=== PATIENT | female | born 1965 | race Caucasian/White ===

== ENCOUNTER 2024-01-16 22:33 | Emergency (ER) | payer OTHER, BC ==
[2024-01-16] MEDS ORDERED: ONDANSETRON 4 MG/2 ML VIAL ONE (23:06)
[2024-01-16] MEDS ORDERED: NA CHLORIDE 0.9% 1,000 ML ONE (23:07)
[2024-01-16] MEDS ORDERED: MORPHINE 2 MG/ML SYR ONE (23:07)
[2024-01-16] MEDS ORDERED: TAMSULOSIN 0.4 MG SR CAP ONE (23:07)
[2024-01-16] MEDS ORDERED: MORPHINE 4 MG/ML SYR ONE (23:07)
[2024-01-16] MEDS ORDERED: KETOROLAC 30 MG/ML INJ ONE (23:08)
[2024-01-16 23:40] LABS: Absolute Monocytes 0.5 K/uL (0.1-1.3); Absolute Neutrophil 3.1 K/uL (1.8-8.0); Basophils % 0.3 % (0-1.3); Eosinophils % 0.8 % (0-4.4); Hematocrit 37.1 % (36.0-45.0); Hemoglobin 12.7 g/dL (12.0-15.0); Lymphocytes % 35.4 % (15.3-44.8); MCHC 34.1 g/dL (32.0-36.0); MPV 8.7 fL (7.6-11.3); Monocytes % 8.7 % (3.3-12.3); Neutrophils % 54.8 % (41.7-73.7); Nucleated Red Blood Cells % 0.2 % (0-0); Platelets 239 thou/uL (152-406); RBC Red Blood Cell Count 4.08 M/uL (3.86-4.86); Red Cell Distribution Width 13.2 % (12.1-15.2)
[2024-01-16 23:53] LABS: Albumin 3.7 g/dL (3.4-5.0); Albumin/Globulin Ratio 1.4 (1.1-1.8); Anion Gap 5.9 mEq/L (5.0-15.0); Bilirubin Total 2.1 mg/dL (0.2-1.0); Globulin 2.7 g/dL (2.3-3.5); Potassium 3.9 mEq/L (3.5-5.1); Protein, Total 6.4 g/dL (6.4-8.2)
[2024-01-17] MEDS ORDERED: MORPHINE 4 MG/ML SYR ONE (00:35)
[2024-01-17] MEDS ORDERED: PROMETHAZINE 25 MG TABLET ONE (00:53)
[2024-01-17] MEDS ORDERED: NA CHLORIDE 0.9% 1,000 ML ONE (00:53)
[2024-01-17] MEDS ORDERED: TRAMADOL HCL 50 MG TAB ONE (01:25)
[2024-01-17] MEDS ORDERED: METOCLOPRAMIDE 10 MG/2mL INJ ONE (02:19)
[2024-01-17 02:59] LABS: Calcium Oxalate Crystals- Ur Few /HPF (None Seen); Specific Gravity 1.015 (1.005-1.030); Sqamous Epithelial <5 /HPF (None Seen); Urine Bacteria None Seen /HPF (<20); Urine Bilirubin NEGATIVE (Negative); Urine Blood Trace (Negative); Urine Clarity Turbid (Clear); Urine Color Light-Yellow (Yellow); Urine Culture Reflex Order NOT NEEDED; Urine Glucose TRACE (Negative); Urine Ketones 1+ (Negative); Urine Microscopic Reflex YN ORDER UMIC; Urine Mucus Slight /HPF (None Seen); Urine Nitrite NEGATIVE (Negative); Urine Protein NEGATIVE (Negative); Urine Urobilinogen 1+ (Normal)
--- NOTE | 2024-01-17 03:08 | ER ---
Nurse's Notes [facility] Name: Dori Rucker Age: 58 yrs Sex: Female : 1965 Arrival Date: 01/16/2024 Time: 22:33 Bed 6 Private MD: Diagnosis: Calculus of kidney;Right ureteral calculus Presentation: 01/15 22:51 Chief complaint: Patient states: Right flank pain that radiates to RLQ onset today at cm10 2030. Pt reports that she has a history of kidney stones and feels like she is passing a stone. Pt also reports nausea and vomiting. Coronavirus screen: Client denies travel out of the [place] in the last 14 days. At this time, the client does not indicate any symptoms associated with coronavirus-19. Ebola Screen: Patient denies travel to an Ebola-affected area in the 21 days before illness onset. No symptoms or risks identified at this time. Initial Sepsis Screen: Does the patient meet any 2 criteria? No. Patient's initial sepsis screen is negative. Does the patient have a suspected source of infection? No. Patient's initial sepsis screen is negative. Risk Assessment: Do you want to hurt yourself or someone else? Patient reports no desire to harm self or others. Onset of symptoms was January 16, 2024. 22:51 Method Of Arrival: Wheelchair cm10 22:51 Acuity: HENRY 3 cm10 Triage Assessment: 22:53 General: Appears in no apparent distress. uncomfortable, Behavior is calm, cooperative. cm10 Pain: Complains of pain in Right flank Pain radiates to right lower quadrant Pain currently is 10 out of 10 on a pain scale. Pain began 3 hours ago. Is continuous. Neuro: No deficits noted. Level of Consciousness is awake, alert, obeys commands, Oriented to person, place, time, situation. Respiratory: No deficits noted. Airway is patent Respiratory effort is even, unlabored, Respiratory pattern is regular, symmetrical. Historical: - Allergies: 22:52 Dilaudid; cm10 22:52 Sulfa (Sulfonamide Antibiotics); cm10 - PMHx: 22:52 Degenerative disc disease; ulcerative colitis; cm10 - PSHx: 22:52 Cervical (plate and pins); Gastric bypass 2020; hysterectomy; cm10 - Immunization history:: Adult Immunizations up to date. - Infectious Disease History:: Denies. - Social history:: Smoking status: unknown. - Family history:: not pertinent. Screenin/29 01:45 [facility] ED Fall Risk Assessment (Adult) History of falling in the last 3 months, jb4 including since admission No falls in past 3 months (0 pts) Confusion or Disorientation No (0 pts). Abuse screen: Denies threats or abuse. Nutritional screening: No deficits noted. Tuberculosis screening: No symptoms or risk factors identified. Assessment: 01/15 23:00 General: Appears in no apparent distress. uncomfortable, Behavior is calm, cooperative, jb4 appropriate for age. Pain: Complains of pain in Right flank. Pain does not radiate. Pain currently is 10 out of 10 on a pain scale. Neuro: Level of Consciousness is awake, alert, obeys commands, Oriented to person, place, time, situation. Cardiovascular: Patient's skin is warm and dry. Respiratory: Airway is patent Respiratory effort is even, unlabored, Respiratory pattern is regular, symmetrical. Derm: Skin is intact, Skin is pink, warm \T\ dry. Musculoskeletal: Circulation, motion, and sensation intact. Range of motion: intact in all extremities. 01/16 00:45 Reassessment: Patient appears in no apparent distress at this time. Patient and/or jb4 family updated on plan of care and expected duration. Pain level reassessed. Patient is alert, oriented x 3, equal unlabored respirations, skin warm/dry/pink. 02:00 Reassessment: Patient appears in no apparent distress at this time. Patient and/or jb4 family updated on plan of care and expected duration. Pain level reassessed. Patient is alert, oriented x 3, equal unlabored respirations, skin warm/dry/pink. 03:31 Reassessment: Patient appears in no apparent distress at this time. Patient and/or jb4 family updated on plan of care and expected duration. Pain level reassessed. Patient is alert, oriented x 3, equal unlabored respirations, skin warm/dry/pink. Vital Signs: 01/15 22:51 BP 153 / 90; Pulse 66; Resp 16; Temp 96.5(TE); Pulse Ox 100% on R/A; Weight 73.94 kg; cm10 Height 5 ft. 6 in. ; Pain 10/10; 01/16 00:45 BP 126 / 71; Pulse 59; Resp 16; Pulse Ox 98% on R/A; Pain 6/10; jb4 00:57 BP 126 / 68; Pulse 54; Resp 16; Pulse Ox 100% ; Pain 4/10; jb4 01:45 BP 127 / 80; Pulse 67; Resp 16; Pulse Ox 97% on R/A; jb4 01/15 22:51 Body Mass Index 26.31 (73.94 kg, 167.64 cm) cm10 01/15 22:51 Pain Scale: Adult cm10 01/16 00:45 Pain Scale: Adult jb4 00:57 Pain Scale: Adult jb4 [place] Coma Score: 21:36 Eye Response: spontaneous(4). Motor Response: obeys commands(6). Verbal Response: sp4 oriented(5). Total: 15. ED Course: 01/15 22:35 Patient arrived in ED. ra3 22:45 Choco Wisdom MD is Attending Physician. sp4 22:52 Triage completed. cm10 22:54 Arm band placed on Patient placed in an exam room, on a stretcher. cm10 22:55 Esau Yeboah, ALONDRA is Primary Nurse. jb4 23:03 CBC with Diff Sent. jb4 23:03 CMP Sent. jb4 23:03 Lipase Sent. jb4 23:30 CT Abd/Pelvis - Without Contrast In Process Unspecified. EDMS 01/16 01:45 Patient has correct armband on for positive identification. Bed in low position. Call jb4 light in reach. Side rails up X 1. Provided Education on: discharge instructions.. 01:45 No provider procedures requiring assistance completed. IV discontinued, intact, jb4 bleeding controlled, No redness/swelling at site. Pressure dressing applied. 03:04 Kj Serrato MD is Referral Physician. sp4 Administered Medications: 01/15 23:16 Drug: morphine IVP or IV 6 mg IVP once over 4 mins Route: IVP; Infused Over: 4 mins; jb4 Site: right antecubital; 01/16 00:00 Follow up: Response: No adverse reaction; Marked relief of symptoms; RASS: Alert and jb4 Calm (0) 01/15 23:16 Drug: Ketorolac IVP 30 mg IVP once Route: IVP; Site: right antecubital; jb4 01/16 00:57 Follow up: Response: No adverse reaction; Marked relief of symptoms 4 01/15 23:16 Drug: Ondansetron IVP 4 mg IVP once; over 2 minutes Route: IVP; Site: right antecubital;4 01/16 00:57 Follow up: Response: No adverse reaction; Marked relief of symptoms 4 01/15 23:17 Drug: NS 0.9% IV 1000 ml IV at 1 bolus Per protocol; 1000 mL bolus Route: IV; Rate: 1 jb4 bolus; Site: right antecubital; 01/16 00:09 Drug: Flomax PO 0.4 mg PO once Route: PO; jb4 00:57 Follow up: Response: No adverse reaction jb4 00:42 Drug: morphine IVP or IV 4 mg IVP once over 4 mins Route: IVP; Infused Over: 4 mins; jb4 Site: right antecubital; 00:57 Follow up: BP 126 / 68; Pulse 54 bpm; Resp 16 bpm; Pulse Ox 100% ; Pain 4/10 Adult; jb4 Response: No adverse reaction; Marked relief of symptoms; RASS: Alert and Calm (0) 00:56 Drug: NS 0.9% IV 1000 ml IV at 1 bolus Per protocol; 1000 mL bolus Route: IV; Rate: 1 jb4 bolus; Site: right antecubital; 00:56 Drug: Promethazine PO 25 mg PO once Route: PO; jb4 00:57 Not Given (Pt does not know if she is allergic, denies needing more pain medication at 4 this time.): norco10 mg-325 mg 1 tabs PO once 01:27 Drug: traMADol PO 100 mg PO once Route: PO; jb4 02:10 Drug: metoCLOPramide IVP 10 mg IVP once; over 1 to 2 minutes Route: IVP; Site: right 4 antecubital; Medication: 01:45 VIS not applicable for this client. jb4 Outcome: 03:07 Discharge ordered by . sp4 03:33 Discharged to home ambulatory, jb4 03:33 Condition: stable 03:33 Discharge instructions given to patient, Instructed on discharge instructions, follow up and referral plans. medication usage, Demonstrated understanding of instructions, follow-up care, medications, Prescriptions given X 4, 03:33 Patient left the ED. jb4 Signatures: [facility]patcher [facility] E[facility]au Bishop, RN RN jb4 Choco Wisdom MD MD sp4 Bruna Garcia RN RN cm10 Yesenia Shafer ra3
--- NOTE | 2024-01-17 03:08 | EDPHYS ---
Physician Documentation [facility] Name: Dori Rucker Age: 58 yrs Sex: Female : 1965 Arrival Date: 01/16/2024 Time: 22:33 Bed 6 Private MD: ED Physician Choco Wisdom HPI: 01/15 22:45 This 58 yrs old Female presents to ER via Unassigned with complaints of sp4 Urinary Problem, Low Back Pain - to pelvic pain. 01/16 21:36 Patient presents with acute onset right flank pain. sp4 Historical: - Allergies: 01/15 22:52 Dilaudid; cm10 22:52 Sulfa (Sulfonamide Antibiotics); cm10 - PMHx: 22:52 Degenerative disc disease; ulcerative colitis; cm10 - PSHx: 22:52 Cervical (plate and pins); Gastric bypass 2020; hysterectomy; cm10 - Immunization history:: Adult Immunizations up to date. - Infectious Disease History:: Denies. - Social history:: Smoking status: unknown. - Family history:: not pertinent. ROS: 01/16 21:36 Constitutional: Negative for fever, chills, and weight loss, positive right flank pain sp4 All other systems are negative, Exam: 21:36 Constitutional: This is a well developed, well nourished patient who is awake, alert, sp4 and in no acute distress. Head/Face: Normocephalic, atraumatic. Eyes: Pupils equal round and reactive to light, extra-ocular motions intact. Lids and lashes normal. Conjunctiva and sclera are not injected. Cornea within normal limits. Periorbital areas with no swelling, redness, or edema. ENT: Nares patent. No nasal discharge, no septal abnormalities noted. Tympanic membranes are normal and external auditory canals are clear. Oropharynx with no redness, swelling, or masses, exudates, or evidence of obstruction, uvula midline. Mucous membranes moist. Neck: Trachea midline, no thyromegaly or masses palpated, and no cervical lymphadenopathy. Supple, full range of motion without nuchal rigidity, or vertebral point tenderness. Chest/axilla: Normal chest wall appearance and motion. Nontender with no deformity. No lesions are appreciated. Cardiovascular: Regular rate and rhythm with a normal S1 and S2. No gallops, murmurs, or rubs. Normal PMI, no JVD. No pulse deficits. Respiratory: Lungs have equal breath sounds bilaterally, clear to auscultation and percussion. No rales, rhonchi or wheezes noted. No increased work of breathing, no retractions or nasal flaring. Abdomen/GI: Soft, with normal bowel sounds. No distension or tympany. No guarding or rebound. Positive right flank tenderness Back: No spinal tenderness. No costovertebral tenderness. Skin: Warm, dry with normal turgor. Normal color with no rashes, no lesions, and no evidence of cellulitis. MS/ Extremity: Pulses equal, no cyanosis. Neurovascular intact. Full, normal range of motion. Neuro: Awake and alert, GCS 15, oriented to person, place, time, and situation. Cranial nerves II-XII grossly intact. Motor strength 5/5 in all extremities. Sensory grossly intact. Psych: Awake, alert, with orientation to person, place and time. Behavior, mood, and affect are within normal limits Vital Signs: 01/15 22:51 BP 153 / 90; Pulse 66; Resp 16; Temp 96.5(TE); Pulse Ox 100% on R/A; Weight 73.94 kg; cm10 Height 5 ft. 6 in. ; Pain 10/10; 01/16 00:45 BP 126 / 71; Pulse 59; Resp 16; Pulse Ox 98% on R/A; Pain 6/10; jb4 00:57 BP 126 / 68; Pulse 54; Resp 16; Pulse Ox 100% ; Pain 4/10; jb4 01:45 BP 127 / 80; Pulse 67; Resp 16; Pulse Ox 97% on R/A; jb4 01/15 22:51 Body Mass Index 26.31 (73.94 kg, 167.64 cm) cm10 01/15 22:51 Pain Scale: Adult cm10 01/16 00:45 Pain Scale: Adult jb4 00:57 Pain Scale: Adult jb4 [place] Coma Score: 21:36 Eye Response: spontaneous(4). Motor Response: obeys commands(6). Verbal Response: sp4 oriented(5). Total: 15. MDM: 01/15 22:46 Patient medically screened. sp4 01/16 21:36 Data reviewed: vital signs, nurses notes, lab test result(s), radiologic studies, CT sp4 scan. 21:37 Differential diagnosis: arthritis, strain, fracture, sciatica, Herniated disc UTI. sp4 Consideration of Admission/Observation Escalation of care including admission/observation considered. 21:37 ED course: CT has revealed 3 mm right ureteral calculus distal right ureter. Patient sp4 stable for discharge home with Flomax and as needed pain medication. 01/15 22:46 Order name: CBC with Diff; Complete Time: 00:42 sp4 01/15 22:46 Order name: CMP; Complete Time: 00:42 sp4 01/15 22:46 Order name: Lipase; Complete Time: 00:42 sp4 01/15 22:46 Order name: Urinalysis w/ reflexes; Complete Time: 03:02 sp4 01/15 22:52 Order name: CT Abd/Pelvis - Without Contrast; Complete Time: 21:38 sp4 01/15 22:46 Order name: IV Saline Lock; Complete Time: 23:03 sp4 01/15 22:46 Order name: Labs collected and sent; Complete Time: 23:03 sp4 Administered Medications: 01/15 23:16 Drug: morphine IVP or IV 6 mg IVP once over 4 mins Route: IVP; Infused Over: 4 mins; jb4 Site: right antecubital; 01/16 00:00 Follow up: Response: No adverse reaction; Marked relief of symptoms; RASS: Alert and jb4 Calm (0) 01/15 23:16 Drug: Ketorolac IVP 30 mg IVP once Route: IVP; Site: right antecubital; jb4 01/16 00:57 Follow up: Response: No adverse reaction; Marked relief of symptoms 4 01/15 23:16 Drug: Ondansetron IVP 4 mg IVP once; over 2 minutes Route: IVP; Site: right antecubital;jb4 01/16 00:57 Follow up: Response: No adverse reaction; Marked relief of symptoms 4 01/15 23:17 Drug: NS 0.9% IV 1000 ml IV at 1 bolus Per protocol; 1000 mL bolus Route: IV; Rate: 1 jb4 bolus; Site: right antecubital; 01/16 00:09 Drug: Flomax PO 0.4 mg PO once Route: PO; jb4 00:57 Follow up: Response: No adverse reaction 4 00:42 Drug: morphine IVP or IV 4 mg IVP once over 4 mins Route: IVP; Infused Over: 4 mins; jb4 Site: right antecubital; 00:57 Follow up: BP 126 / 68; Pulse 54 bpm; Resp 16 bpm; Pulse Ox 100% ; Pain 4/10 Adult; jb4 Response: No adverse reaction; Marked relief of symptoms; RASS: Alert and Calm (0) 00:56 Drug: NS 0.9% IV 1000 ml IV at 1 bolus Per protocol; 1000 mL bolus Route: IV; Rate: 1 jb4 bolus; Site: right antecubital; 00:56 Drug: Promethazine PO 25 mg PO once Route: PO; jb4 00:57 Not Given (Pt does not know if she is allergic, denies needing more pain medication at jb4 this time.): norco10 mg-325 mg 1 tabs PO once 01:27 Drug: traMADol PO 100 mg PO once Route: PO; jb4 02:10 Drug: metoCLOPramide IVP 10 mg IVP once; over 1 to 2 minutes Route: IVP; Site: right jb4 antecubital; Disposition Summary: 01/17/24 03:07 Discharge Ordered Notes: Location: Home sp4 Problem: new sp4 Symptoms: have improved sp4 Condition: Stable sp4 Diagnosis - Calculus of kidney sp4 - Right ureteral calculus sp4 Followup: sp4 - With: Kj Serrato MD - When: 7 - 10 days - Reason: Recheck today's complaints Discharge Instructions: - Discharge Summary Sheet sp4 - Kidney Stones sp4 Forms: - Patient Portal Instructions sp4 Prescriptions: - Flomax 0.4 mg Oral capsule - take 1 capsule ORAL route every morning; 30 capsule; Refills: 0, Product sp4 Selection Permitted - ketorolac 10 mg Oral tablet - take 1 tablet ORAL route every 8 hours for 3 days PRN pain; 30 tablet; Refills: sp4 0, Product Selection Permitted - tramadol 100 mg Oral tablet - take 1 tablet ORAL route every 6 hours PRN pain; 25 tablet; Refills: 0, Product sp4 Selection Permitted - promethazine 25 mg Oral Tablet - take 1 tablet ORAL route every 6 hours As needed; 20 tablet; Refills: 0, sp4 Product Selection Permitted Signatures: Dispatcher [employer] Esau Solares RN RN jb4 Choco Wisdom MD MD sp4 Bruna Garcia RN RN cm10 Corrections: (The following items were deleted from the chart) 01/15 22:46 22:46 CBC+H.LAB.BRZ ordered. EDMS EDMS 22:46 22:46 COMPREHENSIVE METABOLIC PANEL+C.LAB.BRZ ordered. EDMS EDMS 22:46 22:46 LIPASE+C.LAB.BRZ ordered. EDMS EDMS 22:46 22:46 Urinalysis+U.LAB.BRZ ordered. EDMS EDMS 22:52 22:52 Abdomen Pelvis Wo Con+CT.RAD.BRZ ordered. EDMS EDMS
[2024-01-17 04:02] VITALS: BP 127/80; TEMP 96.5; O2SAT 97
--- NOTE | 2024-01-17 11:43 | RAD REPORT ---
EXAM DESCRIPTION: CT Abdomen and Pelvis Without Intravenous Contrast CLINICAL HISTORY: The patient is 58 years old and is Female; right flank pain TECHNIQUE: Axial computed tomography images of the abdomen and pelvis without intravenous contrast. Sagittal and coronal reformatted images were created and reviewed. This CT exam was performed usi ng one or more of the following dose reduction techniques: automated exposure control, adjustment o f the mA and/or kV according to patient size, and/or use of iterative reconstruction technique. COMPARISON: CT November 21, 2023 FINDINGS: LUNG BASES: Unremarkable. No mass. No consolidation. ABDOMEN: LIVER: Homogeneous without focal mass. GALLBLADDER AND BILE DUCTS: Surgical clips are present in the right upper quadrant, consistent wi th previous cholecystectomy. PANCREAS: Unremarkable. No ductal dilation. SPLEEN: Unremarkable. ADRENALS: Unremarkable. No mass. KIDNEYS AND URETERS: Edematous right kidney with mild right hydroureteronephrosis secondary to a 0.3 cm distal right ureteral calculus. Right perinephric and periureteral stranding is present. Pun ctate right intrarenal calcification is noted. There is no hydronephrosis or hydroureter of the left kidney. STOMACH AND BOWEL: Postsurgical change consistent with a gastric bypass is present. The small bow el is normal in caliber. A moderate amount of stool is present throughout the colon. There is no muco sugar thickening or evidence of obstruction. PELVIS: APPENDIX: No findings to suggest acute appendicitis. BLADDER: The bladder is incompletely distended. No stones. REPRODUCTIVE: The patient is status post hysterectomy. ABDOMEN and PELVIS: INTRAPERITONEAL SPACE: Unremarkable. No free air. No significant fluid collection. BONES/JOINTS: No acute fracture. SOFT TISSUES: The soft tissues are normal. VASCULATURE: Minimal atherosclerosis of the vasculature is present. Calcified phleboliths are pre sent within the pelvis. No abdominal aortic aneurysm. LYMPH NODES: Unremarkable. No enlarged lymph nodes. IMPRESSION: Edematous right kidney with mild right hydroureteronephrosis secondary to a 0.3 cm dista l right ureteral calculus. Electronically signed by: Lisa Vu MD 01/16/2024 11:49 PM CDT Due to temporary technical issues with the PACS/Fluency reporting system, reports are being signed by the in house radiologist without review as a courtesy to ensure prompt reporting. The interpreting r adiologist is fully responsible for the content of the report.
== END 2024-01-17 03:33 | disposition home or self-care (01) ==
LOC: ER 22:33
DX: N20.0 Calculus of kidney (principal); N20.1 Calculus of ureter; Z88.2 Allergy status to sulfonamides; Z88.5 Allergy status to narcotic agent
CPT/HCPCS: 85025; 81001; 36415; 83690; 80053; 74176; Q0169; J2765; J2270; J2405; J7030 ×2; 96374; 96375; 99284

== ENCOUNTER 2024-07-25 08:14 | Emergency (ER) | payer OTHER, BC ==
[2024-07-25] MEDS ORDERED: ASPIRIN EC 325 MG TABLET PO ONE (08:45)
[2024-07-25] MEDS ORDERED: NITROGLYCERIN 0.4 MG/TAB SL ONE (08:46)
[2024-07-25 09:04] LABS: Absolute Lymphocytes (CBC) 0.6 K/uL (0.7-4.9); Absolute Monocytes 0.4 K/uL (0.1-1.3); Absolute Neutrophil 3.3 K/uL (1.8-8.0); Basophils % 0.2 % (0-1.3); Eosinophils % 0.3 % (0-4.4); Hematocrit 41.3 % (36.0-45.0); Hemoglobin 13.8 g/dL (12.0-15.0); Lymphocytes % 13.5 % (15.3-44.8); MCH 30.6 pg (27.0-35.0); MCHC 33.5 g/dL (32.0-36.0); MCV 91.5 fL (80-100); MPV 8.2 fL (7.6-11.3); Nucleated Red Blood Cells % 0.1 % (0-0); Platelets 202 thou/uL (152-406); RBC Red Blood Cell Count 4.52 M/uL (3.86-4.86); Red Cell Distribution Width 13.8 % (12.1-15.2)
--- NOTE | 2024-07-25 09:19 | RAD REPORT ---
Procedure: Chest Single View HISTORY: Chest pain COMPARISON: 2018 FINDINGS: The lungs appear clear of acute infiltrate. No significant pleural effusion noted. The heart is normal size. IMPRESSION: No acute abnormality is displayed.
[2024-07-25 09:32] LABS: Albumin 3.7 g/dL (3.4-5.0); Albumin/Globulin Ratio 1.3 (1.1-1.8); Anion Gap 6.1 mEq/L (5.0-15.0); Bilirubin Direct 0.4 mg/dL (0-0.2); Bilirubin Indirect, Calculated 1.3 mg/dL (0.2-0.8); Bilirubin Total 1.7 mg/dL (0.2-1.0); Globulin 2.8 g/dL (2.3-3.5); Potassium 4.1 mEq/L (3.5-5.1); Protein, Total 6.5 g/dL (6.4-8.2)
--- NOTE | 2024-07-25 11:49 | RAD REPORT ---
EXAMINATION: CT ABDOMEN AND PELVIS WITH CONTRAST CLINICAL INDICATION: Abdominal pain TECHNIQUE: CT abdomen and pelvis was performed, after the administration of 100 cc Isovue-300.. Sagit janine and coronal reconstructions were obtained. One or more of the following dose reduction techniques were used: Automated exposure control, adjustment of the mA and kV according to patient si ze, and iterative reconstruction. Unless otherwise specified, incidental findings do not require dedicated imaging follow-up. [id number]. Oral contrast was not given which limits evaluation of bowel and appendix. COMPARISON: November 2023 FINDINGS: Mild fatty liver. Cholecystectomy. Post surgical changes involving the stomach. Wall of the distal stomach appears thic kened. Spleen is upper limits normal size. Pancreas and adrenals unremarkable. Small left renal cyst. No hydronephrosis. Hysterectomy. No adnexal mass. No evidence of diverticulitis. Thickening of the wall of the ascending colon. : IMPRESSION: Apparent thickening of the wall of the distal stomach and ascending colon. Both may be secondary to i ncomplete distention or inflammation.
--- NOTE | 2024-07-25 12:16 | EKG ---
Test Date: 2024-07-25 Test Time: 08:36:33 Kerrick Kleaner Operator: MOODY MEASUREMENT RESULTS: Intervals: Rate: 51 GA: 124 QRSD: 88 QT: 434 QTc: 400 Cropsey: P: 61 GA: 124 QRS: 51 T: 57 INTERPRETIVE STATEMENTS: Sinus bradycardia Otherwise normal ECG Compared to ECG 03/12/2015 10:19:21 Sinus rhythm no longer present Electronically Signed On 07-25-24 12:15:19 POLICE DISPATCHER by Kevin Queen
--- NOTE | 2024-07-25 13:33 | EDPHYS ---
Physician Documentation [facility] Name: Dori Rucker Age: 59 yrs Sex: Female : 1965 Arrival Date: 07/25/2024 Time: 08:14 Bed 20 Private MD: ED Physician Frank Siddiqi HPI: 07/25 09:58 This 59 yrs old Female presents to ER via Ambulatory with complaints of Chest Pain, rt Vomiting, Dizziness. 09:58 Patient presents to the ED with chest pain, nausea, dizziness starting last night at rt 10. Pain is on the left side, does not radiate. Patient reports history of vertigo, states that her dizziness resolved with meclizine. Denies other acute complaints at this time, symptoms are moderate in severity, no other aggravating or alleviating factors.. Historical: - Allergies: 08:42 Dilaudid; rs5 08:42 Sulfa (Sulfonamide Antibiotics); rs5 - PMHx: 08:42 Degenerative disc disease; ulcerative colitis; Hypertensive disorder; vertigo; rs5 - PSHx: 08:42 Cervical (plate and pins); Gastric bypass 2020; hysterectomy; rs5 - Immunization history:: Adult Immunizations up to date. - Infectious Disease History:: Denies. - Social history:: Smoking status: Patient denies any tobacco usage or history of. - Family history:: not pertinent. ROS: 09:58 Constitutional: Negative for fever, chills, and weight loss, Respiratory: Negative for rt shortness of breath, cough, wheezing, and pleuritic chest pain, MS/Extremity: Negative for injury and deformity, Skin: Negative for injury, rash, and discoloration, 09:58 Cardiovascular: Positive for Negative for edema, 09:58 Abdomen/GI: Positive for nausea, Negative for abdominal pain, Exam: 09:58 Constitutional: This is a well developed, well nourished patient who is awake, alert, rt and in no acute distress. Head/Face: Normocephalic, atraumatic. Chest/axilla: Normal chest wall appearance and motion. Nontender with no deformity. No lesions are appreciated. Cardiovascular: Regular rate and rhythm with a normal S1 and S2. No gallops, murmurs, or rubs. Normal PMI, no JVD. No pulse deficits. Respiratory: Lungs have equal breath sounds bilaterally, clear to auscultation and percussion. No rales, rhonchi or wheezes noted. No increased work of breathing, no retractions or nasal flaring. Abdomen/GI: Soft, non-tender, with normal bowel sounds. No distension or tympany. No guarding or rebound. No evidence of tenderness throughout. Skin: Warm, dry with normal turgor. Normal color with no rashes, no lesions, and no evidence of cellulitis. MS/ Extremity: Pulses equal, no cyanosis. Neurovascular intact. Full, normal range of motion. Neuro: Awake and alert, GCS 15, oriented to person, place, time, and situation. Cranial nerves II-XII grossly intact. Motor strength 5/5 in all extremities. Sensory grossly intact. Cerebellar exam normal. Normal gait. 09:58 ECG was reviewed by the Attending Physician. Vital Signs: 08:30 BP 154 / 80; Pulse 53; Resp 17; Temp 98(O); Pulse Ox 99% on R/A; rs5 11:10 BP 112 / 74; Pulse 51; Resp 17; Pulse Ox 99% on R/A; rs5 12:01 BP 122 / 81; Pulse 64; Resp 17; Pulse Ox 98% on R/A; rs5 13:01 BP 124 / 85; Pulse 57; Resp 16; Pulse Ox 99% on R/A; rs5 15:20 BP 117 / 77; Pulse 55; Resp 17; Pulse Ox 99% on R/A; rs5 MDM: 08:30 Medical Screening Exam initiated rt 17:03 Differential diagnosis: Acute NM, nonspecific chest pain, pancreatitis, hepatitis. rt HEART Score: History: Moderately Suspicious (1), ECG: Normal (0), Age: > 45 and < 65 years (1), Risk Factors: 1 or 2 risk factors (1), Troponin: < or = 1 x Normal Limit (0), Total Score = 3. The patient was given aspirin in the Emergency Department. Data reviewed: vital signs, nurses notes, lab test result(s), EKG, radiologic studies. Consideration of Admission/Observation Patient requires transfer for hepatology. Management of patient was discussed with the following: Manager Field Services: Discussed with accepting functional tester, hospitalist at [facility]. I considered the following discharge prescriptions or medication management in the emergency department Medications were administered in the Emergency Department. See MAR. Independent interpretation of the following test(s) in the Emergency Department CT Scan: My interpretation is No infiltrate seen bowel obstruction seen on interpretation of CT scan images. Care significantly affected by the following chronic conditions: Hypertension. Counseling: I had a detailed discussion with the patient and/or guardian regarding the historical points, exam findings, and any diagnostic results supporting the discharge/admit diagnosis, lab results, radiology results, the need to transfer to another facility. Response to treatment: the patient's symptoms have markedly improved after treatment. 07/25 09:01 Order name: Basic Metabolic Panel; Complete Time: 10:57 EDMS 07/25 09:01 Order name: Liver (Hepatic) Function; Complete Time: 10:57 EDMS 07/25 09:01 Order name: Troponin High Sensitivity; Complete Time: 10:57 EDMS 07/25 09:01 Order name: CBC with Automated Diff; Complete Time: 10:57 EDMS 07/25 11:20 Order name: Lipase; Complete Time: 12:32 rt 07/25 08:51 Order name: Chest Single View; Complete Time: 10:57 EDMS 07/25 11:20 Order name: CT Abd/Pelvis - IV Contrast Only; Complete Time: 11:51 rt 07/25 08:35 Order name: EKG; Complete Time: 10:52 rt 07/25 10:11 Order name: EKG Electrocardiogram EDMS 07/25 08:35 Order name: Cardiac monitoring; Complete Time: 09:01 rt 07/25 08:35 Order name: EKG - Nurse/Tech; Complete Time: 09:01 rt 07/25 08:35 Order name: IV Saline Lock; Complete Time: 09:01 rt 07/25 08:35 Order name: Labs collected and sent; Complete Time: 09:01 rt 07/25 08:35 Order name: O2 Per Protocol; Complete Time: 09:01 rt 07/25 08:35 Order name: O2 Sat Monitoring; Complete Time: 09:01 rt EC:58 Rate is 51 beats/min. Rhythm is regular, Sinus bradycardia with No ectopy. QRS Benjamin is rt Normal. NC interval is normal. QRS interval is normal. QT interval is normal. No Q waves. T waves are Normal. No ST changes noted. Interpreted by me. Administered Medications: 08:40 Drug: Aspirin PO 325 mg PO once Route: PO; rs5 09:35 Follow up: Response: No adverse reaction rs5 08:40 Drug: Nitroglycerin Sublingual 0.4 mg Sublingual once; every five minute if needed x3 rs5 Route: Sublingual; 08:45 Drug: Nitroglycerin Sublingual 0.4 mg Sublingual once; every five minute if needed x3 rs5 Route: Sublingual; 08:50 Drug: Nitroglycerin Sublingual 0.4 mg Sublingual once; every five minute if needed x3 rs5 Route: Sublingual; 09:00 Follow up: Response: No adverse reaction; Pain is decreased rs5 Disposition Summary: 07/25/24 13:32 Transfer Ordered Notes: Transfer Location: [facility] rt Reason: Higher level of care rt Condition: Stable rt Problem: new rt Symptoms: have improved rt Accepting Physician: (07/25/24 15:59) rs5 Diagnosis - Acute hepatitis rt - Chest pain rt Forms: - Medication Reconciliation Form rt - SBAR form rt Signatures: Dispatcher [employer] EDMS Frank Siddiqi MD MD rt Job Mann RN RN rs5 Corrections: (The following items were deleted from the chart) 10:57 10:52 Chest Single View+RAD.RAD.BRZ ordered. EDMS EDMS 11:43 10:52 BASIC METABOLIC PANEL+C.LAB.BRZ ordered. EDMS EDMS 11:43 10:52 CBC+H.LAB.BRZ ordered. EDMS EDMS 11:43 10:52 HEPATIC FUNCTION+C.LAB.BRZ ordered. EDMS EDMS 11:43 10:52 Troponin High Sensitivity+C.LAB.BRZ ordered. EDMS EDMS 15:59 13:32 rt rs5
--- NOTE | 2024-07-25 13:33 | ER ---
Nurse's Notes [facility] Name: Dori Rucker Age: 59 yrs Sex: Female : 1965 Arrival Date: 07/25/2024 Time: 08:14 Bed 20 Private MD: Diagnosis: Acute hepatitis;Chest pain Presentation: 07/25 08:30 Chief complaint: Patient states: Chest pain, dizziness, and nausea that started last rs5 night around 10 p.m. 08:30 Coronavirus screen: At this time, the client does not indicate any symptoms associated rs5 with coronavirus-19. Ebola Screen: No symptoms or risks identified at this time. Initial Sepsis Screen: Does the patient meet any 2 criteria? No. Patient's initial sepsis screen is negative. Does the patient have a suspected source of infection? No. Patient's initial sepsis screen is negative. Risk Assessment: Do you want to hurt yourself or someone else? Patient reports no desire to harm self or others. Onset of symptoms was July 25, 2024. 08:30 Method Of Arrival: Ambulatory rs5 08:30 Acuity: HENRY 2 rs5 Historical: - Allergies: 08:42 Dilaudid; rs5 08:42 Sulfa (Sulfonamide Antibiotics); rs5 - PMHx: 08:42 Degenerative disc disease; ulcerative colitis; Hypertensive disorder; vertigo; rs5 - PSHx: 08:42 Cervical (plate and pins); Gastric bypass 2020; hysterectomy; rs5 - Immunization history:: Adult Immunizations up to date. - Infectious Disease History:: Denies. - Social history:: Smoking status: Patient denies any tobacco usage or history of. - Family history:: not pertinent. Screenin:30 [facility] ED Fall Risk Assessment (Adult) History of falling in the last 3 months, rs5 including since admission No falls in past 3 months (0 pts) Confusion or Disorientation No (0 pts) Intoxicated or Sedated No (0 pts) Impaired Gait No (0 pts) Mobility Assist Device Used No (0 pt) Altered Elimination No (0 pt) Score/Fall Risk Level 0 - 2 = Low Risk Oriented to surroundings, Maintained a safe environment. Abuse screen: Denies threats or abuse. Nutritional screening: No deficits noted. Tuberculosis screening: No symptoms or risk factors identified. Assessment: 08:30 General: Appears in no apparent distress. uncomfortable, Behavior is calm, cooperative. rs5 Pain: Complains of pain in chest Pain does not radiate. Quality of pain is described as aching, Pain began 4 hours ago. Is continuous. Neuro: Level of Consciousness is awake, alert, obeys commands, Oriented to person, place, time, situation. Cardiovascular: Patient's skin is warm and dry. Respiratory: Airway is patent Respiratory effort is even, unlabored, Respiratory pattern is regular, symmetrical. GI: Abdomen is round non-distended, Abd is soft and non tender X 4 quads. : No signs and/or symptoms were reported regarding the genitourinary system. EENT: No signs and/or symptoms were reported regarding the EENT system. Derm: Skin is intact, Skin is pink, warm \T\ dry. Musculoskeletal: Range of motion: intact in all extremities. 09:01 Reassessment: Patient and/or family updated on plan of care and expected duration. Pain rs5 level reassessed. Patient is alert, oriented x 3, equal unlabored respirations, skin warm/dry/pink. Patient denies pain at this time. Patient states feeling better. Patient states symptoms have improved. to bedside for med adm, 3 tablets 0.4 sublingual nitro adm q 5 for chest pain relief per MD orders, . 09:41 Reassessment: Patient and/or family updated on plan of care and expected duration. Pain rs5 level reassessed. Patient is alert, oriented x 3, equal unlabored respirations, skin warm/dry/pink. 10:25 Reassessment: Patient and/or family updated on plan of care and expected duration. Pain rs5 level reassessed. Patient is alert, oriented x 3, equal unlabored respirations, skin warm/dry/pink. 11:09 Reassessment: Patient and/or family updated on plan of care and expected duration. Pain rs5 level reassessed. Patient is alert, oriented x 3, equal unlabored respirations, skin warm/dry/pink. 15:58 Reassessment: Patient and/or family updated on plan of care and expected duration. Pain rs5 level reassessed. Patient is alert, oriented x 3, equal unlabored respirations, skin warm/dry/pink. report given to EMS at bedside . Vital Signs: 08:30 BP 154 / 80; Pulse 53; Resp 17; Temp 98(O); Pulse Ox 99% on R/A; rs5 11:10 BP 112 / 74; Pulse 51; Resp 17; Pulse Ox 99% on R/A; rs5 12:01 BP 122 / 81; Pulse 64; Resp 17; Pulse Ox 98% on R/A; rs5 13:01 BP 124 / 85; Pulse 57; Resp 16; Pulse Ox 99% on R/A; rs5 15:20 BP 117 / 77; Pulse 55; Resp 17; Pulse Ox 99% on R/A; rs5 ED Course: 08:17 Patient arrived in ED. mg5 08:29 Frank Siddiqi MD is Attending Physician. rt 08:30 Patient has correct armband on for positive identification. Placed in gown. Bed in low rs5 position. Call light in reach. Side rails up X2. Client placed on continuous cardiac and pulse oximetry monitoring. NIBP monitoring applied. lab coordinator on. Pulse ox on. 08:30 No provider procedures requiring assistance completed. Patient maintains SpO2 rs5 saturation greater than 95% on room air. 08:37 Inserted saline lock: 20 gauge in right antecubital area, using aseptic technique. rs5 Blood collected. Flushed with 10 mL NS. 08:40 Job Mann, RN is Primary Nurse. rs5 08:42 Triage completed. rs5 09:15 Chest Single View In Process Unspecified. EDMS 11:36 CT Abd/Pelvis - IV Contrast Only In Process Unspecified. EDMS 13:50 initiated transfer to [facility]. bc6 15:50 Patient transferred, IV remains in place. rs5 Administered Medications: 08:40 Drug: Aspirin PO 325 mg PO once Route: PO; rs5 09:35 Follow up: Response: No adverse reaction rs5 08:40 Drug: Nitroglycerin Sublingual 0.4 mg Sublingual once; every five minute if needed x3 rs5 Route: Sublingual; 08:45 Drug: Nitroglycerin Sublingual 0.4 mg Sublingual once; every five minute if needed x3 rs5 Route: Sublingual; 08:50 Drug: Nitroglycerin Sublingual 0.4 mg Sublingual once; every five minute if needed x3 rs5 Route: Sublingual; 09:00 Follow up: Response: No adverse reaction; Pain is decreased rs5 Medication: 13:44 VIS not applicable for this client. rs5 Outcome: 13:32 ER care complete, transfer ordered by . rt 15:50 Transferred by ground EMS rs5 15:50 Condition: stable rs5 15:50 Instructed on the need for transfer, Demonstrated understanding of instructions, 15:59 Patient left the ED. rs5 Signatures: Dispatcher [employer] EDMS Frank Siddiqi MD MD rt Job Mann RN RN rs5 Shea Arrington 6 Sarah Arita mg5
[2024-07-25 16:04] VITALS: TEMP 98; O2SAT 99
[2024-07-25 16:05] VITALS: BP 112/74
== END 2024-07-25 15:59 | disposition short-term general hospital (02) ==
LOC: ER 08:14
DX: K85.90 Acute pancreatitis without necrosis or infection, unspecified (principal); R07.9 Chest pain, unspecified; I10 Essential (primary) hypertension
CPT/HCPCS: 93005; 85025; 80048; 36415; 80076; 84484; 83690; 74177; 71045; Q9967

== ENCOUNTER 2024-10-02 20:14 | Emergency (ER) | payer OTHER, BC ==
[2024-10-02] MEDS ORDERED: MORPHINE 4 MG/ML SYR ONE (20:45)
[2024-10-02] MEDS ORDERED: ONDANSETRON 4 MG/2 ML VIAL ONE (20:45)
[2024-10-02] MEDS ORDERED: FAMOTIDINE 20 MG/2 ML VIAL IV ONE (20:46)
[2024-10-02] MEDS ORDERED: NA CHLORIDE 0.9% 500 ML ONE (20:46)
[2024-10-02 21:19] LABS: Absolute Lymphocytes (CBC) 1.3 K/uL (0.7-4.9); Absolute Monocytes 0.3 K/uL (0.1-1.3); Absolute Neutrophil 4.6 K/uL (1.8-8.0); Basophils % 0.3 % (0-1.3); Eosinophils % 0.7 % (0-4.4); Hematocrit 39.6 % (36.0-45.0); Hemoglobin 13.1 g/dL (12.0-15.0); Lymphocytes % 21.3 % (15.3-44.8); MCH 30.9 pg (27.0-35.0); MCHC 33.1 g/dL (32.0-36.0); MCV 93.4 fL (80-100); MPV 8.9 fL (7.6-11.3); Monocytes % 5.2 % (3.3-12.3); Neutrophils % 72.5 % (41.7-73.7); Nucleated Red Blood Cells % 0.1 % (0-0); Platelets 232 thou/uL (152-406); RBC Red Blood Cell Count 4.24 M/uL (3.86-4.86)
[2024-10-02 21:21] LABS: Albumin 3.6 g/dL (3.4-5.0); Albumin/Globulin Ratio 1.1 (1.1-1.8); Anion Gap 7.2 mEq/L (5.0-15.0); Bilirubin Total 1.3 mg/dL (0.2-1.0); Globulin 3.2 g/dL (2.3-3.5); Potassium 4.2 mEq/L (3.5-5.1); Protein, Total 6.8 g/dL (6.4-8.2)
--- NOTE | 2024-10-02 21:44 | RAD REPORT ---
EXAMINATION: CT Abdomen Pelvis Wo Contrast CLINICAL INDICATION: Female, 59 years old. ABD PAIN TECHNIQUE: CT abdomen and pelvis was performed, without IV contrast, as per department protocol. Axia l, sagittal and coronal reconstructions were obtained. One or more of the following dose reduction techniques were used: Automated exposure control, adjustment of the mA and kV according to the patien t size, and iterative reconstruction. Unless otherwise specified, incidental findings do not require dedicated imaging follow-up. COMPARISON: 07/25/2024 FINDINGS: The lack of intravenous contrast limits the sensitivity of this exam for evaluation of solid visceral organs, vascular structures, and retroperitoneum. LOWER CHEST: The visualized lung bases are clear. LIVER: Normal in size and contour. No focal lesion. BILIARY SYSTEM: Status post cholecystectomy. SPLEEN: Normal size. No focal lesion. PANCREAS: No mass, ductal dilation, or mary kay-pancreatic fluid. ADRENALS: Normal; no mass. KIDNEYS AND URETERS: Normal size and contour. No hydronephrosis. URINARY BLADDER: Decompressed limiting evaluation. GASTROINTESTINAL TRACT: Mild segmental small bowel distention with areas of fecalization. No focal tr ansition point. No evidence of bowel obstruction, significant free fluid, free air or abscess. Sequelae of bariatric surgery. APPENDIX: Normal appendix. LYMPH NODES: No lymphadenopathy. MUSCULOSKELETAL: No acute or suspicious osseous abnormality. ADDITIONAL FINDINGS: None. IMPRESSION: Mild segmental small bowel distention with areas of fecalization, nonspecific. Findings may relate to slow peristalsis or other functional abnormalities. Mild ileus is also possible. No other acute or concerning abnormalities in the abdomen or pelvis, with evaluation limited by lack of IV contrast.
[2024-10-02 21:55] LABS: Calcium Oxalate Crystals- Ur Few /HPF (None Seen); Specific Gravity > 1.030 (1.005-1.030); Urine Bacteria <20 /HPF (<20); Urine Bilirubin NEGATIVE (Negative); Urine Blood Negative (Negative); Urine Clarity Extremely Turbid (Clear); Urine Color Yellow (Yellow); Urine Crystals Unidentified Many /HPF (None Seen); Urine Culture Reflex Order NOT NEEDED; Urine Glucose NEGATIVE (Negative); Urine Ketones NEGATIVE (Negative); Urine Microscopic Reflex YN ORDER UMIC; Urine Mucus Slight /HPF (None Seen); Urine Nitrite NEGATIVE (Negative); Urine Protein TRACE (Negative); Urine Urobilinogen 1+ (Normal); Urine pH 5.5 (5.0-7.0)
--- NOTE | 2024-10-02 22:22 | EDPHYS ---
Physician Documentation [facility] Name: Dori Rucker Age: 59 yrs Sex: Female : 1965 Arrival Date: 10/02/2024 Time: 20:14 Bed 23 Private MD: Qamar Dowd ED Physician Manuel Larsen HPI: 10/02 20:26 This 59 yrs old Female presents to ER via Ambulatory with complaints of ec2 Abdominal Pain. 20:26 Patient arrives today for evaluation of upper abdominal pain. Patient reports history ec2 of gastric bypass, history of gastritis and ulcerative colitis arrives today for upper abdominal pain that started 30 minutes prior to arrival. Some associated nausea, no vomiting. Denies diarrhea. Denies urinary complaints. Reports recent history of liver pathology with hepatitis that has since resolved without underlying cause.. Historical: - Allergies: 20:21 Dilaudid; cm10 20:21 Sulfa (Sulfonamide Antibiotics); cm10 - PMHx: 20:21 Degenerative disc disease; Hypertensive disorder; ulcerative colitis; Vertigo; cm10 - PSHx: 20:21 Cervical (plate and pins); Gastric bypass 2020; hysterectomy; Cholecystectomy; cm10 - Immunization history:: Adult Immunizations up to date. - Infectious Disease History:: Denies. - Social history:: Smoking status: unknown. ROS: 20:26 Constitutional: as per hpi ec2 Exam: 20:26 Constitutional: GEN: NAD Head: atraumatic Eyes: EOMI Ears: External ears are ec2 normal. CV: regular rate LUNGS: no respiratory distress ABD: non-distended, soft, minimally tender in the epigastrium, not guarding, not rigid. SKIN: no evidence of rashes MSK: no evidence of trauma Vital Signs: 20:22 BP 158 / 74; Pulse 64; Resp 15; Temp 96.9(TE); Pulse Ox 100% on R/A; Weight 74.84 kg; cm10 Height 5 ft. 6 in. ; Pain 7/10; 21:00 BP 134 / 75; Pulse 56; Resp 15; Pulse Ox 100% on R/A; me1 22:00 BP 123 / 67; Pulse 65; Resp 14; Pulse Ox 100% ; me1 22:30 BP 109 / 61; Pulse 61; Resp 15; Temp 98.4; Pulse Ox 98% ; me1 20:22 Body Mass Index 26.63 (74.84 kg, 167.64 cm) cm10 20:22 Pain Scale: Adult cm10 MDM: 20:17 Medical Screening Exam initiated ec2 20:26 Data reviewed: vital signs, nurses notes. ED course: Patient arrives today for ec2 evaluation of upper abdominal pain. Examination yields abdominal findings as above. Will obtain lab work, CT imaging. Differential diagnose include processes such as gastritis, hepatitis, ureteral stone.. 21:26 ED course: Patient with some LFT elevation with an AST of 300 and ALT at 196.. ec2 21:30 ED course: When compared to external records, patient LFTs are improved.. ec2 22:18 ED course: CT abdomen pelvis shows possible mild ileus, patient otherwise ec2 well-appearing no acute distress. Will discharge home and have the patient follow-up with PCP. Return precautions given.. 10/02 20:25 Order name: CBC with Diff; Complete Time: 22:17 2 10/02 20:25 Order name: CMP; Complete Time: 21:25 2 10/02 20:25 Order name: Lipase; Complete Time: 21:25 2 10/02 20:25 Order name: Urinalysis w/ reflexes; Complete Time: 22:17 2 10/02 20:25 Order name: CT Abd/Pelvis - Without Contrast; Complete Time: 21:45 2 10/02 20:25 Order name: IV Saline Lock; Complete Time: 20:56 ec2 10/02 20:25 Order name: Labs collected and sent; Complete Time: 20:56 ec2 Administered Medications: 20:56 Drug: NS 0.9% IV 500 ml 500 ml IV at 1 bolus once; to be given as a bolus over 30 me1 minutes Volume: 500 ml; Route: IV; Rate: 1 bolus; Site: left antecubital; 22:51 Follow up: Response: No adverse reaction; IV Status: Completed infusion; IV Intake: me1 500ml 20:57 Drug: Ondansetron IVP 4 mg IVP once; over 2 minutes Route: IVP; Site: left antecubital; me1 22:52 Follow up: Response: No adverse reaction; Nausea is decreased me1 20:57 Drug: morphine IVP or IV 4 mg IVP once over 4 mins Route: IVP; Infused Over: 4 mins; me1 Site: left antecubital; 22:52 Follow up: Response: No adverse reaction; Pain is decreased me1 20:57 Drug: Famotidine IVP 20 mg IVP once; dilute with 10 mL 0.9% NaCl; give over 2 minutes me1 Route: IVP; Site: left antecubital; 22:52 Follow up: Response: No adverse reaction me1 Disposition Summary: 10/02/24 22:22 Discharge Ordered Notes: Location: Home ec2 Condition: Stable ec2 Diagnosis - Upper abdominal pain, unspecified ec2 - Elevated Liver Enzymes, improved ec2 Followup: ec2 - With: Qamar Dowd MD - When: - Reason: Recheck today's complaints Discharge Instructions: - Discharge Summary Sheet ec2 - Abdominal Pain, Adult ec2 Forms: - Medication Reconciliation Form ec2 - Antibiotic Education ec2 - Prescription Opioid Use ec2 - Patient Portal Instructions ec2 - Leadership Thank You Letter ec2 Signatures: Dispatcher [employer] Bruna Bueno RN RN cm10 Belinda Garcia RN RN me1 Manuel Larsen MD MD ec2 Corrections: (The following items were deleted from the chart) 20:26 20:26 CBC+H.LAB.BRZ ordered. EDMS EDMS 20:26 20:26 COMPREHENSIVE METABOLIC PANEL+C.LAB.BRZ ordered. EDMS EDMS 20:26 20:26 LIPASE+C.LAB.BRZ ordered. EDMS EDMS 20:26 20:26 Urinalysis+U.LAB.BRZ ordered. EDMS EDMS 20:26 20:26 Abdomen Pelvis Wo Con+CT.RAD.BRZ ordered. EDMS EDMS
--- NOTE | 2024-10-02 22:22 | ER ---
Nurse's Notes [facility] Name: Dori Rucker Age: 59 yrs Sex: Female : 1965 Arrival Date: 10/02/2024 Time: 20:14 Bed 23 Private MD: Qamar Dowd Diagnosis: Upper abdominal pain, unspecified;Elevated Liver Enzymes, improved Presentation: 10/02 20:22 Chief complaint: Patient states: Upper abdominal pain onset today. Pt reports nausea. cm10 Pt states that she had similar pain in July with elevated liver enzymes. Coronavirus screen: Client denies travel out of the [place] in the last 14 days. Ebola Screen: Patient denies travel to an Ebola-affected area in the 21 days before illness onset. Initial Sepsis Screen: Does the patient meet any 2 criteria? No. Patient's initial sepsis screen is negative. Does the patient have a suspected source of infection? No. Patient's initial sepsis screen is negative. Risk Assessment: Do you want to hurt yourself or someone else? Patient reports no desire to harm self or others. Onset of symptoms was October 02, 2024. 20:22 Method Of Arrival: Ambulatory cm10 20:22 Acuity: HENRY 3 cm10 Triage Assessment: 20:25 General: Appears in no apparent distress. uncomfortable, Behavior is calm, cooperative. cm10 Pain: Complains of pain in abdomen Pain does not radiate. Pain currently is 7 out of 10 on a pain scale. Quality of pain is described as sharp, stabbing, Is continuous. Neuro: No deficits noted. Level of Consciousness is awake, alert, obeys commands, Oriented to person, place, time, situation, Appropriate for age. Respiratory: No deficits noted. Airway is patent Respiratory effort is even, unlabored, Respiratory pattern is regular, symmetrical. Historical: - Allergies: 20:21 Dilaudid; cm10 20:21 Sulfa (Sulfonamide Antibiotics); cm10 - PMHx: 20:21 Degenerative disc disease; Hypertensive disorder; ulcerative colitis; Vertigo; cm10 - PSHx: 20:21 Cervical (plate and pins); Gastric bypass 2020; hysterectomy; Cholecystectomy; cm10 - Immunization history:: Adult Immunizations up to date. - Infectious Disease History:: Denies. - Social history:: Smoking status: unknown. Screenin:45 [facility] ED Fall Risk Assessment (Adult) History of falling in the last 3 months, me1 including since admission No falls in past 3 months (0 pts) Confusion or Disorientation No (0 pts) Intoxicated or Sedated No (0 pts) Impaired Gait No (0 pts) Mobility Assist Device Used No (0 pt) Altered Elimination No (0 pt) Score/Fall Risk Level 0 - 2 = Low Risk Maintained a safe environment, Provided non-skid footwear, Hourly rounding (assess needs \T\ fall precautionary measures) done. Abuse screen: Denies threats or abuse. Nutritional screening: No deficits noted. Tuberculosis screening: No symptoms or risk factors identified. Assessment: 20:45 General: Appears uncomfortable, well groomed, well developed, well nourished, Behavior me1 is calm, cooperative, appropriate for age, Reports epigastric pain that started about 19:30, sharp, 10/10 with some nausea. Pain: Complains of pain in epigastric area Pain radiates to right upper quadrant and left upper quadrant Pain currently is 10 out of 10 on a pain scale. Quality of pain is described as sharp, Pain began suddenly, 1 hour ago. Is continuous. Neuro: Level of Consciousness is awake, alert, obeys commands, Oriented to person, place, time, situation, Appropriate for age. Cardiovascular: Patient's skin is warm and dry. Respiratory: Airway is patent Trachea midline Respiratory effort is even, unlabored, Respiratory pattern is regular, symmetrical. GI: Abdomen is non-distended, Bowel sounds present X 4 quads. Abd is soft X 4 quads Reports upper abdominal pain, nausea, since 19:30. : No signs and/or symptoms were reported regarding the genitourinary system. EENT: No signs and/or symptoms were reported regarding the EENT system. Derm: Skin is intact, is healthy with good turgor, Skin is pink, warm \T\ dry. Musculoskeletal: No signs and/or symptoms reported regarding the musculoskeletal system. Vital Signs: 20:22 BP 158 / 74; Pulse 64; Resp 15; Temp 96.9(TE); Pulse Ox 100% on R/A; Weight 74.84 kg; cm10 Height 5 ft. 6 in. ; Pain 7/10; 21:00 BP 134 / 75; Pulse 56; Resp 15; Pulse Ox 100% on R/A; me1 22:00 BP 123 / 67; Pulse 65; Resp 14; Pulse Ox 100% ; me1 22:30 BP 109 / 61; Pulse 61; Resp 15; Temp 98.4; Pulse Ox 98% ; me1 20:22 Body Mass Index 26.63 (74.84 kg, 167.64 cm) cm10 20:22 Pain Scale: Adult cm10 ED Course: 20:17 Patient arrived in ED. gm2 20:17 Qamar Dowd MD is Private Physician. gm2 20:17 Manuel Larsen MD is Attending Physician. ec2 20:25 Triage completed. cm10 20:25 Arm band placed on right wrist. Patient placed in waiting room. cm10 20:43 Belinda Garcia, ALONDRA is Primary Nurse. me1 20:45 Patient has correct armband on for positive identification. Bed in low position. Call me1 light in reach. Side rails up X 1. Provided Education on: POC. Verbalized understanding.. Client placed on continuous cardiac and pulse oximetry monitoring. NIBP monitoring applied. Pulse ox on. NIBP on. 20:45 No provider procedures requiring assistance completed. me1 20:56 Initial lab(s) drawn, by me, sent to lab. Urine collected: clean catch specimen, me1 cloudy. Inserted saline lock: 22 gauge in left antecubital area, using aseptic technique. 20:56 CBC with Diff Sent. me1 20:56 CMP Sent. me1 20:56 Lipase Sent. me1 20:56 Urinalysis w/ reflexes Sent. me1 20:57 CT Abd/Pelvis - Without Contrast In Process Unspecified. EDMS 22:21 Qamar Dowd MD is Referral Physician. ec2 22:55 IV discontinued, intact, bleeding controlled, No redness/swelling at site. Pressure me1 dressing applied. Administered Medications: 20:56 Drug: NS 0.9% IV 500 ml 500 ml IV at 1 bolus once; to be given as a bolus over 30 me1 minutes Volume: 500 ml; Route: IV; Rate: 1 bolus; Site: left antecubital; 22:51 Follow up: Response: No adverse reaction; IV Status: Completed infusion; IV Intake: me1 500ml 20:57 Drug: Ondansetron IVP 4 mg IVP once; over 2 minutes Route: IVP; Site: left antecubital; me1 22:52 Follow up: Response: No adverse reaction; Nausea is decreased me1 20:57 Drug: morphine IVP or IV 4 mg IVP once over 4 mins Route: IVP; Infused Over: 4 mins; me1 Site: left antecubital; 22:52 Follow up: Response: No adverse reaction; Pain is decreased me1 20:57 Drug: Famotidine IVP 20 mg IVP once; dilute with 10 mL 0.9% NaCl; give over 2 minutes me1 Route: IVP; Site: left antecubital; 22:52 Follow up: Response: No adverse reaction me1 Medication: 20:45 VIS not applicable for this client. me1 Intake: 22:51 IV: 500ml; Total: 500ml. me1 Outcome: 22:22 Discharge ordered by . ec2 22:55 Discharged to home ambulatory, with family, me1 22:55 Condition: stable 22:55 Discharge instructions given to patient, family, Instructed on discharge instructions, follow up and referral plans. Demonstrated understanding of instructions, follow-up care, 22:56 Patient left the ED. me1 Signatures: Dispatcher [employer] Bruna Bueno RN RN cm10 Belinda Garcia RN RN me1 Manuel Larsen MD MD ec2 Mariann Norwood 2
[2024-10-03 17:12] VITALS: BP 109/61; TEMP 98.4; O2SAT 98
== END 2024-10-02 22:56 | disposition home or self-care (01) ==
LOC: ER 20:14
DX: R10.13 Epigastric pain (principal); R74.01 Elevation of levels of liver transaminase levels
CPT/HCPCS: 96361; 85025; 81001; 36415; 83690; 80053; 74176; 96375; 96374; 99284; J2405; J7040